=== PATIENT | male | born 2000 | race Caucasian/White ===

== ENCOUNTER → 2022-08-01 | Outpatient (CLI) | payer BC ==
[~2022-08-01] MED LIST: AZIT250T12 PO
--- NOTE | 2022-08-01 13:15 | Diagnostic Imaging Report ---
INDICATION: Elevated liver enzymes PROCEDURE: Ultrasound abdomen complete. TECHNIQUE: Multiple real-time grayscale images were obtained of the abdomen in various projections. COMPARISON: None available. FINDINGS: The liver measures 17.47. Liver has diffuse increased echogenicity with decreased sound transmission indicative of steatosis. No focal hepatic lesion is present. Main portal vein is patent with normal directional flow. The gallbladder is normally filled without gallstones, wall thickening, or pericholecystic fluid. The common bile duct is obscured by overlying bowel gas. No intrahepatic biliary dilation. The visualized portions of the pancreas are normal. Portions of the head and tail are obscured by overlying bowel gas. The kidneys are normal in size. No hydronephrosis, shadowing calculi, or suspicious mass lesion. The spleen is normal in size measuring 12 cm. There is no focal splenic mass. The aorta and IVC are normal in caliber where seen. IMPRESSION: 1. Diffuse hepatic steatosis. Dictated by: Dictated on workstation # [id number]
== END ==
LOC: RAD 08:04
DX: K76.0 Fatty (change of) liver, not elsewhere classified (principal)
CPT/HCPCS: 76700